=== PATIENT | male | born 1990 | race African-American/Black ===

== ENCOUNTER 2016-05-10 02:51 | Emergency (ER) | payer OTHER ==
[2016-05-10 03:16] VITALS: TEMP 100; BMI 37.8
--- NOTE | 2016-05-10 05:25 | EDPRACDOC ---
- General Information Chief Complaint: Earache Stated Complaint: RT EAR SWELLING Information Source: Patient Home Medications: Home Medications Ibuprofen Tablet [Motrin] 800 mg PO TID PRN #30 tab 05/10/16 Allergies/Adverse Reactions: Allergies Allergy/AdvReac Type Severity Reaction Status Date / Time No Known Allergies Allergy Verified 05/10/16 04:15 - History of Present Illness Onset: A few days HPI: C/o right ear pain that has been getting worse x 3-4 days. Got rx for ciprodex yesterday but it seemed like the ear pain was getting worse today. Location: right ear Context: Denies: Myringotomy Tubes, Spontaneous Onset, Swimming, Trauma, URI Symptoms, Other Recently Treated Ear Infection: Reports: Antibiotic Pain Severity: Reports: Moderate Associated Signs & Symptoms: Reports: None ED Past Medical History - History Reviewed Yes Nurses notes reviewed and agree except as marked - Patient Medical History Psychological History: Denies: Depression - Social Medical History Smoking Status: Never smoker EDM Review of Systems - Review of Systems ROS Negative Except as Marked: Yes All systems reviewed and were negative except as marked Ears: Drainage, Pain - Physical Exam Constitutional: Alert Oriented to: Time, Person, Place Last recorded Vital Signs: Last Vital Signs Temp 100 F 05/10/16 03:13 Pulse 76 05/10/16 03:13 Resp 20 05/10/16 03:13 BP 130/77 05/10/16 03:13 Pulse Ox 98 05/10/16 03:13 Oxygen Pulse Oxygen Saturation 98 O2 Device Room Air Oxygen Flow Rate Fraction of Inspired Oxygen ( FIO2) - HEENT Head: Normal Eye Exam: negative: Conjunctival Injection, Scleral Icterus Oropharynx: negative: Drooling Tympanic Membrane: Normal ENT EAC: Swelling, Tender TMJ: Normal Nose: No Symptoms Reported Neck: Normal - Respiratory/Cardiovascular Respiratory: Normal - CTA Cardiovascular: Normal - GI Tenderness: Non tender - Musculoskeletal Back: Normal Extremities: Normal - Integumentary Skin: Normal - Neurologic Mood Description: Normal Thought: Coherent Other Exam Findings: Eear was plugged with mucus. Wick was placed to absorb and then withdrawn. Second wick was inserted into ear canal to help ciprodex application and one dose was given. Decision Time to Discharge: 05:27 - Departure Disposition: Home Condition: Stable Final Diagnosis: Otitis externa Qualifiers: Otitis externa type: unspecified type Laterality: right Chronicity: acute Qualified Code(s): H60.501 - Unspecified acute noninfective otitis externa, right ear Instructions: Otitis Externa (ED) Education/Counseling Given To: Patient Education/Counseling Given Regarding: Diagnosis, Treatment, Prognosis, Follow Up Referrals: Reji Carlson MD [Staff Physician] - One Week Prescriptions: Ibuprofen Tablet [Motrin] 800 mg PO TID PRN #30 tab PRN Reason: Pain Forms: Excuse Note Additional Instructions: Follow up in two days with primary care, urgent care, or return here for removal of ear wick. Continue ciprodex. take motrin for pain. Return to ED for any new or worsening symptoms.
[2016-05-10] MEDS ORDERED: IBUPROFEN 800 MG TAB PO ONE (05:29)
[2016-05-10 05:44] VITALS: BP 128/72; PULSE 75
== END 2016-05-10 05:43 | disposition home or self-care (01) ==
LOC: ED 02:51
DX: H60.501 Unspecified acute noninfective otitis externa, right ear (principal)
CPT/HCPCS: 99283; J3490

== ENCOUNTER 2016-05-12 08:34 | Emergency (ER) | payer OTHER ==
[2016-05-12 08:35] VITALS: BMI 37.8
[2016-05-12 08:39] VITALS: BP 127/59; PULSE 77; TEMP 98
--- NOTE | 2016-05-12 08:56 | EDPRACDOC ---
- General Information Chief Complaint: Earache Stated Complaint: RT EAR PROBLEM Time Seen by Provider: 05/12/16 08:46 Information Source: Patient Mode of Arrival: Car Home Medications: Home Medications Ibuprofen Tablet [Motrin] 800 mg PO TID PRN #30 tab 05/10/16 Ciproflox/Dexameth Otic Susp [Ciprodex Otic Susp] 5 drops RIGHT EAR BID #1 bot 05/12/16 Oxycodone HCl/Acetaminophen [Percocet 5-325 mg Tablet] 1 each PO Q4 #14 tablet 05/12/16 Allergies/Adverse Reactions: Allergies Allergy/AdvReac Type Severity Reaction Status Date / Time No Known Allergies Allergy Verified 05/10/16 04:15 - History of Present Illness Onset: 2 weeks HPI: PATIENT DEVELOPED OTITIS EXTERNA AND HAD EAR WICK PLACED TAKING CIPRODEX BID. PRESENTS TODAY FOR REEVAL AND EAR WICK REMOVAL. PAIN HAS DECREASED. NO FEVER Location: right ear Context: Reports: Spontaneous Onset Recently Treated Ear Infection: Reports: Yes Pain Severity: Reports: Mild Associated Signs & Symptoms: Reports: None ED Past Medical History - History Reviewed Yes Nurses notes reviewed and agree except as marked Travel Outside of [place] in the Last 3 Months?: No - Patient Medical History Psychological History: Denies: Depression - Social Medical History Smoking Status: Never smoker ETOH: None Substance Abuse: None Lives With: Family Lives In: Home EDM Review of Systems - Review of Systems ROS Negative Except as Marked: Yes All systems reviewed and were negative except as marked Constitutional: No Symptoms Reported. negative: Fever, Chills, Weakness, Fatigue, Loss of Appetite Eyes: No Symptoms Reported. negative: Redness, Blurred Vision, Double Vision, Discharge, Pain, Light Sensitive, Photophobia Ears: Drainage, Pain. negative: Ear Pulling, Hearing Loss Throat: No Symptoms Reported. negative: Pain, Swelling Nose: No Symptoms Reported. negative: Congestion, Bleeding, Discharge, Injection, Swelling, Deformity, Ecchymosis, Tender, Abrasion, Laceration Mouth: No Symptoms Reported. negative: Pain, Drooling Respiratory: No Symptoms Reported. negative: Cough, Brassy Cough, Barky Cough, Shortness of Breath, Wheezing, Hemoptysis Cardiovascular: No Symptoms Reported. negative: Chest Pain, Palpitations, Syncope, Edema, Orthopnea, PND, Skin Mottling, Cyanosis Gastrointestinal: No Symptoms Reported. negative: Pain, Constipation, Nausea, Vomiting, Diarrhea, Melena, Formula Intolerance Genitourinary: No Symptoms Reported. negative: Dysuria, Hematuria, Frequency, Discharge, Bleeding, Testicular Pain, Neurological: No Symptoms Reported. negative: Headache, Dizziness, Seizure, Numbness, Weakness, Speech Difficulty, Gait Difficulty Musculoskeletal: No Symptoms Reported. negative: Neck, Chestwall, Ribs, Back, Shoulder, Arm, Elbow, Forearm, Wrist, Hand, Pelvis, Hip, Femur, Knee, Leg, Ankle , Foot Integumentary: No Symptoms Reported. negative: Itching, Rash, Bruising, Wound Allergic/Immunologic: No Symptoms Reported. negative: Hives, Itching Hematologic: No Symptoms Reported. negative: Lymphadenopathy, Easy Bruising, Easy Bleeding Endocrine: No Symptoms Reported. negative: Weight Gain, Weight Loss Psychiatric: No Symptoms Reported. negative: Anxiety, Depression, Hallucinations, Insomnia, Suicidal - Physical Exam Constitutional: Alert (Awake), No apparent distress Oriented to: Time, Person, Place Last recorded Vital Signs: Last Vital Signs Temp 98.0 F 05/12/16 08:36 Pulse 77 05/12/16 08:36 Resp 16 05/12/16 08:36 BP 127/59 L 05/12/16 08:36 Pulse Ox 99 05/12/16 08:36 Oxygen Pulse Oxygen Saturation 99 O2 Device Room Air Oxygen Flow Rate Fraction of Inspired Oxygen ( FIO2) - HEENT Head: Normal ( normocephalic) Eye Exam: Normal (PERRL, EOMI, Sclera white) Oropharynx: Normal (Pharynx:Moist without exudate,Gums-no swelling) Tympanic Membrane: Normal ENT EAC: Other (MILD DISCHARGE, SWELLING HAS RESOLVED- EAR WICK REMOVED) TMJ: Normal Nose: No Symptoms Reported (septum midline) Neck: Normal (FROM, trachea at midline) - Respiratory/Cardiovascular Respiratory: Normal - CTA (BBS clear to auscultation without adventitious sounds ) Cardiovascular: Normal (RRR without murmur, gallop or rub) - GI Auscultation: Normal (NABS) Palpation: Normal (Soft,No rebound or guarding, non distended) Tenderness: Non tender Coles's Sign: Negative - Musculoskeletal Back: Normal (Non-Tender) Extremities: Normal (Normal tone, Pulses 2+ No cyanosis or edema, FROM) - Integumentary Skin: Normal, Warm, Dry Lymphatics: Normal (no adenopathy) - Neurologic Memory Impaired: Normal Motor Function: Normal (Normal tone, Pulses 2+ No cyanosis or edema, FROM) Cranial Nerve: Normal (CN II-X11 intact sensation, strength 5/5) Cerebellar: Normal Mood Description: Normal Perception: Normal Decision Time to Discharge: 08:56 - Departure Yes I personally saw and evaluated the patient. Disposition: Home Condition: Good Final Diagnosis: Right otitis externa Qualifiers: Otitis externa type: other infective Chronicity: unspecified Qualified Code(s) : H60.391 - Other infective otitis externa, right ear Instructions: Otitis Externa (ED) Education/Counseling Given To: Patient Education/Counseling Given Regarding: Diagnosis, Treatment, Prognosis, Follow Up Referrals: None,No Provider [Primary Care Provider] - One Week Igor Luo MD [Staff Physician] - One Week Prescriptions: Ciproflox/Dexameth Otic Susp [Ciprodex Otic Susp] 5 drops RIGHT EAR BID #1 bot Oxycodone HCl/Acetaminophen [Percocet 5-325 mg Tablet] 1 each PO Q4 #14 tablet
== END 2016-05-12 09:30 | disposition home or self-care (01) ==
LOC: ED 08:34
DX: H60.391 Other infective otitis externa, right ear (principal)
CPT/HCPCS: 99283